=== PATIENT | female | born 1955 | race Caucasian/White ===

== ENCOUNTER 2021-10-14 10:45 | Emergency (ER) | payer MEDICARE, MEDICAID ==
[~2021-10-14] VITALS: Ht 162 cm; Wt 68.0 kg
[2021-10-14 11:20] LABS: BASOPHILS # (AUTO) 0.1 10^3/uL (0.0-0.1); BASOPHILS % (AUTO) 1 % (0-10); EOSINOPHILS # (AUTO) 0.1 10^3/uL (0.0-0.3); EOSINOPHILS % (AUTO) 1 % (0-10); HEMATOCRIT 47 % (35-52); HEMOGLOBIN 14.9 g/dL (11.5-16.0); LYMPHOCYTES # (AUTO) 2.1 10^3/uL (1.0-4.0); LYMPHOCYTES % (AUTO) 25 % (12-44); MEAN CORPUSCULAR HEMOGLOBIN 30 pg (25-34); MEAN CORPUSCULAR HGB CONC 32 g/dL (32-36); MEAN CORPUSCULAR VOLUME 93 fL (80-99); MEAN PLATELET VOLUME 10.2 fL (9.0-12.2); MONOCYTES # (AUTO) 0.6 10^3/uL (0.0-1.0); MONOCYTES % (AUTO) 8 % (0-12); NEUTROPHILS # (AUTO) 5.4 10^3/uL (1.8-7.8); NEUTROPHILS % (AUTO) 65 % (42-75); PLATELET COUNT 250 10^3/uL (130-400); WHITE BLOOD COUNT 8.3 10^3/uL (4.3-11.0)
[2021-10-14] MEDS ORDERED: NS IV 1000 ML 1,000 ML IV SCH (11:30)
[2021-10-14] MEDS ORDERED: MECLIZINE 25 MG (ANTIVERT) TAB PO ONE (11:30)
[2021-10-14] MEDS ORDERED: KETOROLAC 30 MG/ML VIAL IVP ONE (11:30)
[2021-10-14 11:34] LABS: ALBUMIN 3.8 GM/DL (3.2-4.5); POTASSIUM 4.5 MMOL/L (3.6-5.0)
--- NOTE | 2021-10-14 11:34 | ED General ---
General Chief Complaint: Dizziness/Syncope Stated Complaint: DIZZINESS;SOA;HEADACHE Nursing Triage Note: PT TO ROOM 7 PER W/C PT CO OF DIZZINESS UPON AWAKENING, PT GAIT UNSTEADY, PT DENIES N/V, PT CO OF GASPAR RATES 9/10. PT DENIES SOA AT THIS X. Source of Information: Patient Exam Limitations: No Limitations History of Present Illness Date Seen by Provider: Oct 14, 2021 Time Seen by Provider: 11:32 Initial Comments To ER with a frontal headache rated at 8 out of 10 that she noticed upon awakening this morning associated with dizziness and an unsteady gait. No feve rs no chills. She is a smoker and has a chronic cough that is unchanged in character. She has been Covid vaccinated. She denies nausea or vomiting. She felt fine last night Timing/Duration: 4-6 Hours Severity: Moderate Associated Systoms: Headaches, Nausea/Vomiting Allergies and Home Medications Allergies Coded Allergies: Cephalosporins (Verified Allergy, Unknown, 10/14/21) Penicillins (Verified Allergy, Unknown, 10/14/21) codeine (Verified Allergy, Unknown, 10/14/21) diphenhydramine (Verified Allergy, Unknown, 10/14/21) Patient Home Medication List Home Medication List Reviewed: Yes Review of Systems Review of Systems Constitutional: see HPI; No chills, No fever EENTM: see HPI Respiratory: cough Genitourinary: no symptoms reported Musculoskeletal: no symptoms reported Skin: no symptoms reported Psychiatric/Neurological: No Symptoms Reported Hematologic/Lymphatic: No Symptoms Reported Physical Exam Vital Signs Vital Signs - First Documented 10/14/21 11:05 Temp 36.2 Pulse 78 Resp 18 B/P (MAP) 114/80 (91) Pulse Ox 93 O2 Delivery Room Air Capillary Refill : Less Than 3 Seconds Height, Weight, BMI Height: '" Weight: lbs. oz. kg; 25.00 BMI Method: General Appearance: No Apparent Distress, WD/WN, Other (Oxygen 92 to 93% on room air. Alert and oriented. Laughing and joking during conversation. Well- appearing.) Eyes: Bilateral Eye Normal Inspection, Bilateral Eye PERRL, Bilateral Eye EOMI HEENT: PERRL/EOMI, TMs Normal Neck: Full Range of Motion, Normal Inspection Respiratory: No Accessory Muscle Use, No Respiratory Distress Cardiovascular: Regular Rate, Rhythm, Normal Peripheral Pulses Gastrointestinal: Normal Bowel Sounds, Non Tender, Soft Extremity: Normal Capillary Refill, Normal Inspection Neurologic/Psychiatric: Alert, Oriented x3 Skin: Normal Color, Warm/Dry Progress/Results/Core Measures Suspected Sepsis SIRS Temperature: Pulse: 78 Respiratory Rate: 18 Laboratory Tests 10/14/21 11:14: White Blood Count 8.3 Blood Pressure 114 /80 Mean: 91 Laboratory Tests 10/14/21 11:14: Creatinine 0.85, Platelet Count 250, Total Bilirubin 0.4 Results/Orders Lab Results Laboratory Tests Test 10/14/21 11:14 10/14/21 11:30 Range/Units White Blood Count 8.3 4.3-11.0 10^3/uL Red Blood Count 5.03 3.80-5.11 10^6/uL Hemoglobin 14.9 11.5-16.0 g/dL Hematocrit 47 35-52 % Mean Corpuscular Volume 93 80-99 fL Mean Corpuscular Hemoglobin 30 25-34 pg Mean Corpuscular Hemoglobin Concent 32 32-36 g/dL Red Cell Distribution Width 13.1 10.0-14.5 % Platelet Count 250 130-400 10^3/uL Mean Platelet Volume 10.2 9.0-12.2 fL Immature Granulocyte % (Auto) 0 % Neutrophils (%) (Auto) 65 42-75 % Lymphocytes (%) (Auto) 25 12-44 % Monocytes (%) (Auto) 8 0-12 % Eosinophils (%) (Auto) 1 0-10 % Basophils (%) (Auto) 1 0-10 % Neutrophils # (Auto) 5.4 1.8-7.8 10^3/uL Lymphocytes # (Auto) 2.1 1.0-4.0 10^3/uL Monocytes # (Auto) 0.6 0.0-1.0 10^3/uL Eosinophils # (Auto) 0.1 0.0-0.3 10^3/uL Basophils # (Auto) 0.1 0.0-0.1 10^3/uL Immature Granulocyte # (Auto) 0.0 0.0-0.1 10^3/uL D-Dimer < 0.27 0.00-0.49 UG/ML Sodium Level 141 135-145 MMOL/L Potassium Level 4.5 3.6-5.0 MMOL/L Chloride Level 110 H 98-107 MMOL/L Carbon Dioxide Level 21 21-32 MMOL/L Anion Gap 10 5-14 MMOL/L Blood Urea Nitrogen 15 7-18 MG/DL Creatinine 0.85 0.60-1.30 MG/DL Estimat Glomerular Filtration Rate 67 BUN/Creatinine Ratio 18 Glucose Level 97 70-105 MG/DL Calcium Level 9.4 8.5-10.1 MG/DL Corrected Calcium 9.6 8.5-10.1 MG/DL Total Bilirubin 0.4 0.1-1.0 MG/DL Aspartate Amino Transf (AST/SGOT) 26 5-34 U/L Alanine Aminotransferase (ALT/SGPT) 19 0-55 U/L Alkaline Phosphatase 71 40-136 U/L C-Reactive Protein High Sensitivity 0.30 0.00-0.50 MG/DL Total Protein 7.1 6.4-8.2 GM/DL Albumin 3.8 3.2-4.5 GM/DL Procalcitonin 0.02 <0.10 NG/ML SARS-CoV-2 RNA (RT-PCR) Not Detected Not Detecte My Orders Orders - SEA COSTA APRN Covid 19 Inhouse Test (10/14/21 11:03) Cbc With Automated Diff (10/14/21 11:03) Comprehensive Metabolic Panel (10/14/21 11:03) Ed Iv/Invasive Line Start (10/14/21 11:03) Ua Culture If Indicated (10/14/21 11:03) Chest 1 View, Ap/Pa Only (10/14/21 11:03) Procalcitonin (Pct) (10/14/21 11:03) Fibrin Degradation Products (10/14/21 11:03) Hs C Reactive Protein (10/14/21 11:03) Ketorolac Injection (Toradol Injection) (10/14/21 11:30) Meclizine Tablet (Antivert Tablet) (10/14/21 11:30) Ns Iv 1000 Ml (Sodium Chloride 0.9%) (10/14/21 11:30) Ct Angio Head/Neck (10/14/21 11:30) Iohexol Injection (Omnipaque 350 Mg/Ml 1 (10/14/21 11:45) Received Contrast (Hold Metformin- Contr (10/14/21 11:45) Ns (Ivpb) (Sodium Chloride 0.9% Ivpb Bag (10/14/21 11:45) Sodium Chloride Flush (Catheter Flush Sy (10/14/21 11:45) Meclizine Tablet (Antivert Tablet) (10/14/21 11:53) Iohexol Injection (Omnipaque 350 Mg/Ml 1 (10/14/21 12:15) Received Contrast (Hold Metformin- Contr (10/14/21 12:15) Ns (Ivpb) (Sodium Chloride 0.9% Ivpb Bag (10/14/21 12:15) Medications Given in ED Current Medications Medications Dose Ordered Sig/Silvia Route Start Time Stop Time Status Last Admin Dose Admin Iohexol 100 ml ONCE ONCE IV 10/14/21 12:15 10/14/21 12:16 DC 10/14/21 12:26 75 ML Ketorolac Tromethamine 15 mg ONCE ONCE IVP 10/14/21 11:30 10/14/21 11:32 DC 10/14/21 11:49 15 MG Meclizine HCl 50 mg ONCE ONCE PO 10/14/21 11:30 10/14/21 11:32 DC 10/14/21 11:49 50 MG Sodium Chloride 10 ml NEEDED PRN IV 10/14/21 11:45 10/14/21 12:26 10 ML Sodium Chloride 100 ml ONCE ONCE IV 10/14/21 12:15 10/14/21 12:16 DC 10/14/21 12:26 80 ML Vital Signs/I&O 10/14/21 11:05 Temp 36.2 Pulse 78 Resp 18 B/P (MAP) 114/80 (91) Pulse Ox 93 O2 Delivery Room Air Capillary Refill : Less Than 3 Seconds Blood Pressure Mean: 91 Departure Impression Primary Impression: Vertigo Disposition: 01 HOME, SELF-CARE Condition: Stable Departure-Patient Inst. Decision time for Depature: 12:55 Patient Instructions: Vertigo (a Type of Dizziness) (DC) Add. Discharge Instructions: All discharge instructions reviewed with patient and/or family. Voiced understanding. Scripts Meclizine HCl (Meclizine HCl) 25 Mg Tablet 25 MG PO TID, #14 TAB Prov: SEA COSTA APRN 10/14/21 SEA COSTA APRN Oct 14, 2021 11:34
[2021-10-14 11:35] LABS: CALCIUM 9.4 MG/DL (8.5-10.1)
[2021-10-14 11:36] LABS: TOTAL PROTEIN 7.1 GM/DL (6.4-8.2)
[2021-10-14 11:38] LABS: BILIRUBIN,TOTAL 0.4 MG/DL (0.1-1.0)
[2021-10-14 11:40] LABS: CREATININE SERUM 0.85 MG/DL (0.60-1.30)
[2021-10-14] MEDS ORDERED: IOHEXOL 350 MG/ML 100 ML (OMNIPAQUE 350) VIAL IV ONE ×2 (11:45→12:15)
[2021-10-14] MEDS ORDERED: HOLD METFORMIN - RECEIVED CONTRAST 20 ML VIAL IV SCH ×2 (11:45→12:15)
[2021-10-14] MEDS ORDERED: NS 100 ML (IVPB) BAG IV ONE ×2 (11:45→12:15)
[2021-10-14] MEDS ORDERED: CATHETER FLUSH 10 ML SYR IV PRN (11:45)
[2021-10-14] MEDS ORDERED: MECLIZINE 25 MG (ANTIVERT) TAB ONE (11:53)
--- NOTE | 2021-10-14 12:51 | Diagnostic Imaging Report ---
PROCEDURE: CT angiography of the head and CT angiography of the neck with and without contrast. TECHNIQUE: Contiguous noncontrast images were obtained from the skull base through the vertex. After intravenous contrast administration, helical CT angiography of the neck was performed. Source data was reformatted into 3D MIP projections. Delayed post contrast acquisition was also obtained. Auto Exposure Controls were utilized during the CT exam to meet ALARA standards for radiation dose reduction. INDICATION: Dizziness. Unsteady gait. Concern for ischemia. History of cancer. Comparison: None. FINDINGS: CTA Neck: The visualized portions of the aortic arch demonstrate atherosclerotic plaque. There is conventional branching pattern of the great vessels of the aorta. The brachiocephalic artery is normal in course and caliber. The right and left common carotid origins are unremarkable. The origin of the left subclavian artery is patent. The common carotid arteries and internal carotid arteries demonstrate a normal course. There is mild calcified atherosclerotic plaque in the bilateral carotid bulbs and proximal internal carotid arteries without flow-limiting stenosis. No evidence of dissection in the carotid systems. The external carotid arteries are patent and unremarkable. The left vertebral artery is dominant. The origin of the right vertebral artery is seen and is unremarkable. The origin of the left vertebral artery is seen and is unremarkable. There is no focal stenosis seen within the neck. There is no dissection. The vertebral arteries are well visualized to up to the level of the basilar artery. The osseous structures of the cervical spine are unremarkable. A small amount of thyroid tissue is seen at the midline at the level of the thyroid cartilage. Centrilobular and paraseptal emphysema is seen in the lung apices. There is scarring in the bilateral lung apices. CTA brain: Atherosclerotic plaque is seen in the [place] of the bilateral terminal internal carotid arteries without significant stenosis. No stenosis is seen in the bilateral anterior, middle, and posterior cerebral arteries. No evidence of aneurysm the [place]. In the posterior circulation, both of the vertebral arteries demonstrate normal opacification. Both the right and left PICA arteries are identified. The basilar artery is normal in course and caliber. The terminal branch vessels including the superior cerebellar arteries unremarkable. CT head: No large acute territorial ischemia, mass, or hemorrhage. No midline shift or mass effect. Decreased attenuation is seen in the periventricular and subcortical white matter. The ventricles and cortical sulci are prominent. The basilar cisterns are patent and unremarkable. The calvarium is intact. The visualized paranasal sinuses are clear. IMPRESSION: 1. No stenosis or aneurysm in the [place]. No evidence of large vessel occlusion. 2. No stenosis or dissection the bilateral carotid and vertebral arteries. 3. No large acute territorial ischemia, mass, or hemorrhage. No abnormal enhancement. 4. Centrilobular and paraseptal emphysema in the lung apices. 5. 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 Dictated by: Dictated on workstation # [id number]
[2021-10-14] MEDS ORDERED: MECL-149 PO (12:56)
[2021-10-14 13:05] VITALS: BP 114/85
--- NOTE | 2021-10-14 14:37 | Diagnostic Imaging Report ---
Indication: Shortness of air COMPARISON: None available TECHNIQUE: Single radiograph chest dated 10/14/2021. FINDINGS: The cardiac silhouette is within normal limits in size. No significant pulmonary vascular congestion. Surgical clips are seen overlying the left axillary region. Background emphysematous changes are present with associated mild biapical scarring. No significant pleural effusion. No pneumothorax. No acute osseous abnormality. IMPRESSION: Mild background fibroemphysematous changes without superimposed acute cardiopulmonary abnormality. Dictated by: Dictated on workstation # [id number]
== END 2021-10-14 13:04 | disposition home or self-care (01) ==
LOC: EDUNIT# 10:45 → ER 10:47
DX: R42 Dizziness and giddiness (principal); F17.210 Nicotine dependence, cigarettes, uncomplicated; Z20.822 Contact with and (suspected) exposure to COVID-19
CPT/HCPCS: 36415; 70496; 70498; 71045; 80053; 84145; 85025; 85379; 86141; 87636; 96374

== ENCOUNTER 2021-11-25 13:52 | Outpatient (RCR) | payer MEDICARE, MEDICAID ==
[~2021-11-25 13:52] MED LIST: MECL-149 PO
[2021-11-25 15:20] LABS: BASOPHILS # (AUTO) 0.1 10^3/uL (0.0-0.1); BASOPHILS % (AUTO) 1 % (0-10); EOSINOPHILS # (AUTO) 0.2 10^3/uL (0.0-0.3); EOSINOPHILS % (AUTO) 2 % (0-10); HEMATOCRIT 46 % (35-52); LYMPHOCYTES % (AUTO) 36 % (12-44); MEAN CORPUSCULAR HEMOGLOBIN 30 pg (25-34); MEAN CORPUSCULAR HGB CONC 32 g/dL (32-36); MEAN CORPUSCULAR VOLUME 93 fL (80-99); MEAN PLATELET VOLUME 9.9 fL (9.0-12.2); MONOCYTES # (AUTO) 0.7 X 10^3 (0.0-1.0); MONOCYTES % (AUTO) 8 % (0-12); NEUTROPHILS # (AUTO) 4.5 X 10^3 (1.8-7.8); NEUTROPHILS % (AUTO) 53 % (42-75); PLATELET COUNT 296 10^3/uL (130-400); WHITE BLOOD COUNT 8.4 10^3/uL (4.3-11.0)
[2021-11-25 15:39] LABS: ALBUMIN 3.9 GM/DL (3.2-4.5); BILIRUBIN,TOTAL 0.2 MG/DL (0.1-1.0); CALCIUM 9.4 MG/DL (8.5-10.1); CREATININE SERUM 0.92 MG/DL (0.60-1.30); POTASSIUM 4.3 MMOL/L (3.6-5.0); TOTAL PROTEIN 7.6 GM/DL (6.4-8.2)
== END 2021-12-02 | disposition home or self-care (01) ==
LOC: ONC 13:52
PROVIDERS: ATTEND Internal Medicine Hematology & Oncology
DX: C50.912 Malignant neoplasm of unspecified site of left female breast (principal); M81.0 Age-related osteoporosis without current pathological fracture; Z90.12 Acquired absence of left breast and nipple; Z92.3 Personal history of irradiation; Z92.21 Personal history of antineoplastic chemotherapy
CPT/HCPCS: 80053; 85025; G0463; 99214

== ENCOUNTER → 2022-05-30 | Outpatient (CLI) | payer MEDICARE, MEDICAID ==
--- NOTE | 2022-06-02 09:24 | Diagnostic Imaging Report ---
INDICATION: Routine screening. Comparison is made with prior mammogram from 05/28/2021 and 05/24/2020. 2-D and 3-D bilateral screening mammography was performed with CAD. CAD is utilized. The current study was also evaluated with a Computer Aided Detection (CAD) system. Scattered fibroglandular densities are identified bilaterally. Post-therapeutic changes in the upper posterior left breast are again noted. No discrete mass is detected. No malignant-appearing microcalcifications are seen. There are benign calcifications in the left breast. Surgical clips left axilla are noted. IMPRESSION: BI-RADS Category 2 No mammographic features suspicious for malignancy are identified. ACR BI-RADS Category 2: Benign findings. Result letter will be mailed to the patient. Note: At least 10% of breast cancer is not imaged by mammography. Dictated by: Dictated on workstation # [id number]
== END ==
LOC: RAD 09:37
PROVIDERS: ATTEND Internal Medicine Hematology & Oncology
DX: Z12.31 Encounter for screening mammogram for malignant neoplasm of breast (principal); Z85.3 Personal history of malignant neoplasm of breast
CPT/HCPCS: 77063; 77067

== ENCOUNTER → 2022-06-12 | Outpatient (CLI) | payer MEDICARE, MEDICAID | LOC: EDSTATUS 12-03 15:11 → ONC 13:39 | PROVIDERS: ATTEND Internal Medicine Hematology & Oncology | DX: C50.912 Malignant neoplasm of unspecified site of left female breast (principal); M81.0 Age-related osteoporosis without current pathological fracture; Z90.12 Acquired absence of left breast and nipple; Z92.3 Personal history of irradiation; Z92.21 Personal history of antineoplastic chemotherapy | CPT/HCPCS: 99213 ==

== ENCOUNTER → 2022-07-08 | Outpatient (CLI) | payer MEDICARE, MEDICAID ==
--- NOTE | 2022-07-08 15:45 | Diagnostic Imaging Report ---
PROCEDURE: US Renal Bilateral. TECHNIQUE: Multiple real-time grayscale images were obtained over the kidneys in various projections bilaterally. INDICATION: Chronic kidney disease stage III. Right kidney measures 8.3 x 3.6 x 4.7 cm and the left kidney measures 8.3 x 4.2 x 5.0 cm. Cortical thickness and echogenicity appears normal. A hypoechoic mass lower pole right kidney is noted measuring 1.9 x 1.2 x 1.8 cm. No internal vascularity is seen. This may represent a cyst. Left kidney is lobulated but no discrete mass is identified. No calculi are detected. No hydronephrosis. Prevoid bladder volume is 278 mL. Postvoid volume is 18 mL. Bilateral ureteral jets are visualized. IMPRESSION: Probable right renal cyst. The study is otherwise unremarkable. There is no evidence of hydronephrosis. Dictated by: Dictated on workstation # [id number]
== END ==
LOC: RAD 12:33
PROVIDERS: ATTEND Internal Medicine Nephrology
DX: N18.31 Chronic kidney disease, stage 3a (principal); E83.9 Disorder of mineral metabolism, unspecified; N39.3 Stress incontinence (female) (male); Z87.442 Personal history of urinary calculi
CPT/HCPCS: 76770

== ENCOUNTER → 2022-12-11 | Outpatient (CLI) | payer MEDICARE, MEDICAID ==
[2022-12-11 13:34] LABS: BASOPHILS # (AUTO) 0.1 10^3/uL (0.0-0.1); BASOPHILS % (AUTO) 1 % (0-10); EOSINOPHILS # (AUTO) 0.1 10^3/uL (0.0-0.3); EOSINOPHILS % (AUTO) 2 % (0-10); HEMATOCRIT 47 % (35-52); HEMOGLOBIN 15.3 g/dL (11.5-16.0); LYMPHOCYTES # (AUTO) 2.3 10^3/uL (1.0-4.0); LYMPHOCYTES % (AUTO) 29 % (12-44); MEAN CORPUSCULAR HEMOGLOBIN 30 pg (25-34); MEAN CORPUSCULAR HGB CONC 32 g/dL (32-36); MEAN CORPUSCULAR VOLUME 92 fL (80-99); MEAN PLATELET VOLUME 10.6 fL (9.0-12.2); MONOCYTES # (AUTO) 0.6 10^3/uL (0.0-1.0); MONOCYTES % (AUTO) 8 % (0-12); NEUTROPHILS # (AUTO) 4.7 10^3/uL (1.8-7.8); NEUTROPHILS % (AUTO) 61 % (42-75); PLATELET COUNT 203 10^3/uL (130-400); WHITE BLOOD COUNT 7.8 10^3/uL (4.3-11.0)
[2022-12-11 13:53] LABS: ALBUMIN 3.8 GM/DL (3.2-4.5); BILIRUBIN,TOTAL 0.2 MG/DL (0.1-1.0); CREATININE SERUM 0.94 MG/DL (0.60-1.30); POTASSIUM 4.1 MMOL/L (3.6-5.0); TOTAL PROTEIN 7.4 GM/DL (6.4-8.2)
== END ==
LOC: ONC 13:10
PROVIDERS: ATTEND Internal Medicine Hematology & Oncology
DX: C50.912 Malignant neoplasm of unspecified site of left female breast (principal)
CPT/HCPCS: 36415; 80053; 85025

== ENCOUNTER → 2023-06-02 | Outpatient (CLI) | payer MEDICARE, MEDICAID ==
--- NOTE | 2023-06-02 15:56 | Diagnostic Imaging Report ---
INDICATION: Routine screening. COMPARISON: 05/30/2022 and 05/28/2021. TECHNIQUE: 2D and 3D bilateral screening mammography was performed with CAD. FINDINGS: Scattered fibroglandular densities are identified bilaterally. Post-therapeutic changes in the upper outer left breast are again noted. The overall breast parenchyma appears stable. No mass or malignant-appearing microcalcifications are seen. There are benign calcifications bilaterally. A biopsy clip in the central left breast is again noted. The axillae are unremarkable apart from clips in the left axilla. IMPRESSION: No mammographic features suspicious for malignancy are identified. ACR BI-RADS Category 2: Benign findings. Result letter will be mailed to the patient. Note: At least 10% of breast cancer is not imaged by mammography. Dictated by: Dictated on workstation # [id number]
== END ==
LOC: RAD 13:59
PROVIDERS: ATTEND Internal Medicine Hematology & Oncology
DX: Z12.31 Encounter for screening mammogram for malignant neoplasm of breast (principal)
CPT/HCPCS: 77063; 77067

== ENCOUNTER → 2023-06-04 | Outpatient (CLI) | payer MEDICARE, MEDICAID ==
[2023-06-04 13:52] LABS: BASOPHILS % (AUTO) 1 % (0-10); EOSINOPHILS # (AUTO) 0.1 10^3/uL (0.0-0.3); EOSINOPHILS % (AUTO) 2 % (0-10); HEMATOCRIT 45 % (35-52); HEMOGLOBIN 14.5 g/dL (11.5-16.0); LYMPHOCYTES % (AUTO) 43 % (12-44); MEAN CORPUSCULAR HEMOGLOBIN 29 pg (25-34); MEAN CORPUSCULAR HGB CONC 32 g/dL (32-36); MEAN CORPUSCULAR VOLUME 92 fL (80-99); MEAN PLATELET VOLUME 10.6 fL (9.0-12.2); MONOCYTES # (AUTO) 0.5 10^3/uL (0.0-1.0); MONOCYTES % (AUTO) 12 % (0-12); NEUTROPHILS % (AUTO) 43 % (42-75); PLATELET COUNT 215 10^3/uL (130-400); WHITE BLOOD COUNT 4.6 10^3/uL (4.3-11.0)
[2023-06-04 13:58] LABS: ALBUMIN 3.9 GM/DL (3.2-4.5)
[2023-06-04 13:59] LABS: POTASSIUM 4.3 MMOL/L (3.6-5.0)
[2023-06-04 14:00] LABS: CALCIUM 9.7 MG/DL (8.5-10.1)
[2023-06-04 14:03] LABS: BILIRUBIN,TOTAL 0.3 MG/DL (0.1-1.0)
[2023-06-04 14:05] LABS: CREATININE SERUM 0.93 MG/DL (0.60-1.30)
== END ==
LOC: ONC 13:45
PROVIDERS: ATTEND Internal Medicine Hematology & Oncology
DX: C50.912 Malignant neoplasm of unspecified site of left female breast (principal); M81.0 Age-related osteoporosis without current pathological fracture
CPT/HCPCS: 36415; 80053; 85025